=== PATIENT | male | born 1955 | race Caucasian/White ===

== ENCOUNTER 2016-10-19 11:23 | Day surgery (SDC) | payer OTHER ==
[~2016-10-19] VITALS: Ht 180.3 cm; Wt 86.3 kg
[2016-10-19 12:46] VITALS: Ht 180.3 cm; Wt 86.3 kg
[2016-10-19] MEDS ORDERED: ASPI81TA3 PO (12:53)
[2016-10-19] MEDS ORDERED: levothyroxine PO (12:53)
[2016-10-19] MEDS ORDERED: atorvastatin PO (12:53)
[2016-10-19 14:38] VITALS: BP 109/69; PULSE 70; RESP 18
[2016-10-19] MEDS ORDERED: PROPOFOL 20 ML ONE (15:15)
[2016-10-19 15:30] VITALS: BP 116/67; RESP 20
[2016-10-19] MEDS ORDERED: MIDAZOLAM 1 MG/ML 2 ML INJ ONE ×5 (15:45→15:46)
[2016-10-19] MEDS ORDERED: FENTAnyl 50 MCG/ML VIAL ONE (15:46)
[2016-10-19 15:59] VITALS: BP 112/70; RESP 20
--- NOTE | 2016-10-22 17:19 | OPR ---
Date/Time of Note Date/Time of Note DATE: 10/19/16 Operative Report Preoperative Diagnosis * Colorectal cancer screening Postoperative Diagnosis Impression: * Normal colonic mucosa to cecum * Moderate-sized internal Plan: * High-fiber diet * Annual Hemoccult stool testing * Endoscopy 10 years . Operation/Procedure Performed * Colonoscopy Surgeon: LAKHWINDER PANIAGUA MD Anesthesia: MAC Estimated Blood Loss: none Specimens * None Grafts/Implants * None Complications: None LAKHWINDER PANIAGUA MD Oct 22, 2016 17:18
== END 2016-10-19 18:03 | disposition home or self-care (01) ==
LOC: GIL 11:23
PROVIDERS: ATTEND Internal Medicine Gastroenterology
DX: Z12.11 Encounter for screening for malignant neoplasm of colon (principal); K64.8 Other hemorrhoids
CPT/HCPCS: 45378; J2250; J3010; Z7610